=== PATIENT | male | born 1980 | race American Indian/Alaskan Native ===

== ENCOUNTER 2018-05-10 22:07 | Emergency (ER) | payer OTHER ==
[2018-05-10 22:30] VITALS: TEMP 98.3
[2018-05-10 23:09] VITALS: RESP 18
[2018-05-10] MEDS ORDERED: Naproxen 550 mg Tab PO STA (23:11)
[2018-05-10] MEDS ORDERED: Naproxen 550 mg Tab PO ONE (23:16)
[2018-05-11 00:16] VITALS: BP 154/101; PULSE 70; O2SAT 99
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
--- NOTE | 2018-05-11 09:00 | RAD ---
Date of service: 05/11/2018 PROCEDURE: Cervical Spine Radiographs. HISTORY: Pain. COMPARISON: None. FINDINGS: BONES: There straightening of the cervical spine with loss of normal cervical lordosis. Vertebral height is maintained. Bone mineralization is normal. There is no acute fracture or spondylolisthesis. The craniocervical junction is normal. The atlantoaxial joint is normal. DISC SPACES: Mild degenerative anterior spurring at C4 and C5 and mild reduced disc height. The remaining disc heights are maintained. SOFT TISSUES: Normal. No prevertebral soft tissue swelling. OTHER FINDINGS: None. IMPRESSION: No acute fracture or traumatic anterior listhesis. Straightening of the cervical spine may be positional or related to muscle spasm.
== END 2018-05-11 00:55 | disposition home or self-care (01) ==
LOC: C.ER 22:07
DX: S16.1XXA Strain of muscle, fascia and tendon at neck level, initial encounter (principal); V89.2XXA Person injured in unspecified motor-vehicle accident, traffic, initial encounter

== ENCOUNTER 2018-05-12 23:52 | Emergency (ER) | payer OTHER ==
[2018-05-13 00:23] VITALS: BP 141/91; PULSE 72; RESP 18; TEMP 98.5; O2SAT 98
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
== END 2018-05-13 01:50 | disposition home or self-care (01) ==
LOC: C.ER 23:52
DX: S29.011D Strain of muscle and tendon of front wall of thorax, subsequent encounter (principal); S39.012D Strain of muscle, fascia and tendon of lower back, subsequent encounter; S86.912D Strain of unspecified muscle(s) and tendon(s) at lower leg level, left leg, subsequent encounter; V89.2XXD Person injured in unspecified motor-vehicle accident, traffic, subsequent encounter